=== PATIENT | female | born 1965 | race Asian ===

== ENCOUNTER 2016-10-23 17:09 | Inpatient (IN) | payer MEDICAID ==
[~2016-10-23] VITALS: Ht 157.5 cm; Wt 58.3 kg
--- NOTE | 2016-10-23 17:29 | NUR ---
PT BIBA FROM HOME. PT IS PLACED ON 5150 HOLD FOR REPORTEDLY ATTEMPTING TO HURT SELF WITH A WINE BOTTLE AND HIT HER HEAD ON THE GROUND AT HOME. PT IS AMHARIC MANDARIN SPEAKING ONLY. PT ARRIVED TO ED FULLY AWAKE AND ALERT, HAS SLURRED SPEECH, AND EXCLAIMS "I HAD TWO AND A HALF GLASSES OF WINE AND NOW I'M DRUNK!" PT DENIES THOUGHTS OF HURTING SELF OR OTHERS. WHEN QUESTIONED PT IF SHE HURT HERSELF WITH WINE BOTTLE SHE REPLIED "I JUST ACCIDENTALLY HIT MY HEAD WITH THE WINE BOTTLE." NO SIGNS OF RESP DISTRESS
[2016-10-23 18:06] LABS: BASOPHIL % 0.7 % (0-2); PLATELET COUNT 231 x10^3mcL (130-400); RED CELL DISTRIBUTION WIDTH 13.6 % (11.5-14.5)
[2016-10-23 18:14] LABS: CALCIUM 9.1 mg/dL (8.5-10.1); CARBON DIOXIDE 26.6 mmol/L (21-32); CHLORIDE SERUM 103 mmol/L (98-107); CREATININE SERUM 1.1 mg/dL (0.6-1.0); GFR1 56 mL/min; GLUCOSE SERUM 88 mg/dL (74-106); POTASSIUM SERUM 3.5 mmol/L (3.5-5.1); SODIUM SERUM 140 mmol/L (136-145)
[2016-10-23 18:22] LABS: ALBUMIN 4.1 g/dL (3.4-5.0); ALKALINE PHOSPHATASE 65 U/L (46-116); ALT/SGPT 28 U/L (14-59); AST/SGOT 22 U/L (15-37); BILIRUBIN TOTAL 0.3 mg/dL (0.20-1.00); TOTAL PROTEIN, SERUM 7.9 g/dL (6.4-8.2)
--- NOTE | 2016-10-23 18:33 | NUR ---
PT AMBULATED TO AND FROM THE RESTROOM WITH STEADY GAIT TO PROVIDE A URINE SPECIMEN
[2016-10-23 19:16] LABS: AMPHETAMINE QUAL UR NONE DETECTED (NEG <=1000)
--- NOTE | 2016-10-23 19:43 | NUR ---
PT SLEEPING, EASILY AROUSABLE TO VERBAL STIMULI. RESP E/U. NO ACUTE DISTRESS NOTED. SPOUSE AT BEDSIDE. IN FULL VIEW OF NURSES STATION. CALL LIGHT WITHIN REACH.
--- NOTE | 2016-10-23 21:20 | NUR ---
PT REQ TO GO OUTSIDE TO SMOKE. EXPLAINED TO PT THAT WE CANNOT LET HER GO OUTSIDE TO SMOKE. PT VERBALIZES UNDERSTANDING.
--- NOTE | 2016-10-23 23:56 | NUR ---
PT GIVEN A SANDWICH.
--- NOTE | 2016-10-24 00:15 | NUR ---
PT REQUESTS TO GO OUTSIDE TO SMOKE. PT EDUCATED AGAIN THAT SHE CANNOT LEAVE THE UNIT TO SMOKE, REGARDLESS OF 5150 HOLD OR NOT, PTs ARE NOT PERMITTED TO LEAVE THE UNIT OUTSIDE OF TREATMENT PURPOSES. PT WAS OFFERED NICOTIN PATCH. PT STATES NICOTINE PATCH DOES NOT WORK FOR HER. EXPLAINED TO PT THAT THE NICOTINE PATCH IS ALL WE CAN OFFER HER, PT GAVE UNDERSTANDING AND REQUESTED NICOTINE PATCH. MADE AWARE.
--- NOTE | 2016-10-24 01:28 | NUR ---
PT SLEEPING, PT IN NO ACUTE DISTRESS.
--- NOTE | 2016-10-24 02:47 | NUR ---
PT SLEEPING, FAMILY IS AT BEDSIDE.
--- NOTE | 2016-10-24 03:46 | NUR ---
PT SLEEPING, FAMILY IS AT BEDSIDE
--- NOTE | 2016-10-24 05:09 | NUR ---
PT SLEEPING, RESP EVEN AND UNLABORED, ON DRAFTER LANDSCAPE, FAMILY AT THE BEDSIDE. PT VSS. IN FULL VIEW FROM NURSES STATION.
--- NOTE | 2016-10-24 07:04 | NUR ---
PT SLEEPING, BREATHING EVEN AND UNLABORED. FAMILY IS AT BEDSIDE. CURTAINS REMAIN OPEN WITH FULL VIEW.
--- NOTE | 2016-10-24 07:17 | NUR ---
GAVE REPORT TO EDEN SPARKS AT EXT [id number], TO ASSUME CARE POST TRANSFER
[2016-10-24 07:48] LABS: BASOPHIL % 0.8 % (0-2); PLATELET COUNT 219 x10^3mcL (130-400); RED CELL DISTRIBUTION WIDTH 13.3 % (11.5-14.5)
[2016-10-24 08:00] LABS: microscopic required? YES; urine erythrocyte TRACE (NEGATIVE)
--- NOTE | 2016-10-24 08:08 | NUR ---
PATIENT RECEIVED AT THIS TIME VIA ERNEY. PATIENT AWAKE, ALERT, ABLE TO AMBULATE TO BED FROM [facility] IN [facility] INDEPENDENTLY, SON AT BEDSIDE, ALL SAFETY MEASURES IN PLACE, WILL CONTINUE TO MONITOR.
[2016-10-24 08:17] LABS: CALCIUM 8.6 mg/dL (8.5-10.1); CARBON DIOXIDE 29.2 mmol/L (21-32); CHLORIDE SERUM 108 mmol/L (98-107); CREATININE SERUM 0.8 mg/dL (0.6-1.0); GFR1 > 60 mL/min; GLUCOSE SERUM 98 mg/dL (74-106); POTASSIUM SERUM 3.7 mmol/L (3.5-5.1); SODIUM SERUM 142 mmol/L (136-145)
[2016-10-24 09:40] VITALS: BP 102/58
--- NOTE | 2016-10-24 09:40 | NUR ---
PATIENT AWAKE, ALERT, NO SIGNS OF DISTRESS NOTED. SON FANTASMA AT BEDSIDE TO TRANSLATE. DENIES CHEST PAIN, NO DIZZINESS, TELE #34. SCD'S PLACED, EDUCATION ON USE PROVIDED. ON ROOM AIR, KPAD PLACED TO LOWER BACK, DENIES ANY PAIN AT THIS TIME. CALM AND COOPERATIVE WITH CARE AT THIS TIME (SEE PSYCH ASSESSMENT). ALL SAFETY MEASURES IN PLACE AND REVIEWED, NURSE AID AT BEDSIDE FOR SAFETY, WILL CONTINUE TO MONITOR.
--- NOTE | 2016-10-24 12:30 | NUR ---
PATIENT AWAKE, ALERT, FAMILY AT BEDSIDE, NO SIGNS OF DISTRESS NOTED. NURSE AID AT BEDSIDE FOR SAFETY, WILL CONTINUE TO MONITOR.
[2016-10-24 14:02] VITALS: BP 118/74
--- NOTE | 2016-10-24 15:30 | NUR ---
DR NUGENT IN TO ASSESS PATIENT AT THIS TIME. PATIENT AWAKE, ALERT, NO SIGNS OF DISTRESS NOTED, FAMILY AT BEDSIDE, NURSE AID AT BEDSIDE FOR SAFETY. ALL SAFETY MEASURES IN PLACE, WILL CONTINUE TO MONITOR.
--- NOTE | 2016-10-24 15:51 | NUR ---
IV STARTED AT 1545 ON LEFT HAND, TOLERATED WELL, LINE IS PATENT, SON IS AT BEDSIDE. NURSE AIDE AT BEDSIDE FOR SAFETY. WILL CONTINUE TO MONITOR
[2016-10-24 17:29] VITALS: BP 116/86
--- NOTE | 2016-10-24 18:17 | NUR ---
PATIENT AWAKE, ALERT, NO SIGNS OF DISTRESS NOTED, FAMILY AT BEDSIDE, NURSE AID AT BEDSIDE FOR SAFETY. WILL CONTINUE TO MONITOR.
--- NOTE | 2016-10-24 19:05 | NUR ---
BEDSIDE REPORT GIVEN TO NOC SHIFT NURSE AT THIS TIME. PATIENT AWAKE, ALERT, WANTS TO GO OUTSIDE TO SMOKE, PATIENT COMFORTED AND REMINDED SHE HAS THE NICOTINE PATCH ON. NURSE AID AT BEDSIDE FOR SAFETY, WILL ENDORSE CARE.
--- NOTE | 2016-10-24 19:14 | NUR ---
RECEIVED PATIENT SITTING IN BED AWAKE, ALERT AND ORIENTED WITH NO SIGN OF DISTRESS, CALM AND NO SIGN OF SUICIDAL IDEATION NOTED. TELE#34 NSR ON MONITOR. DIMINISHED BS SATTING AT 98% RA. K PAD TO LOWER BACK IN PLACE. IV HEPLOCK TO LH AND FLUSHED WITH SALINE. WILL CONTINUE TO MONITOR. CALL LIGHT WITHIN REACH. SITTER AT BEDSIDE.
--- NOTE | 2016-10-24 20:32 | NUR ---
PATIENT HAD EPISODE OF BODY AND EXTREMETIES TENSE UP WITH EYE NYSTAGMUS FOR ABOUT 2 MINUTES. MD AWARE AND ADVICED TO TRACT DOWN ALL EPISODE. WILL CONTINUE TO MONITOR.
--- NOTE | 2016-10-24 21:49 | NUR ---
EFRAIN REQUESTED SLEEPING PILLS, DR BUCK MADE AWARE AND ORDERED AMBIEN 5MG PO.
[2016-10-24 23:52] VITALS: BP 125/76
--- NOTE | 2016-10-25 00:13 | NUR ---
PATIENT STILL AWAKE AFTER SHE TOOK AMBIEN 5MG PER PATIENT IT DID NOT WORK AND REQUESTING A STRONGER ONE. MD TO MAKE AWARE.
--- NOTE | 2016-10-25 05:25 | NUR ---
SLEPT FAIRLY NO SIGNS OF SUICIDAL IDEATION NOTED. CHECKED AT INTERVALS FOR NEEDS AND SAFETY.
[2016-10-25 06:12] VITALS: BP 106/65
--- NOTE | 2016-10-25 07:40 | NUR ---
PATIENT RECEIVED A/O, ABLE TO MAKE NEEDS KNOWN. TELE [address], DENIES CP. LUNGS SOMEWHAT DIM BILAT BASE, NO RESP DISTRESS NOTED ON RA. DENIES PAIN/DISCOMFORT AT THIS TIME. KPAD NOTED TO LOWER BACK. SKIN INTACT. IV ACCESS TO , SITE WNL. CALL LIGHT WITHIN REACH. SITTER IN ROOM.
--- NOTE | 2016-10-25 08:25 | NUR ---
DUE MEDICATIONS GIVEN, PATIENT CALM AND COOPERATIVE, SMILING AND RESPONDING APPROPRIATELY.
--- NOTE | 2016-10-25 08:45 | NUR ---
DR VENTURA AND TEAM AT BEDSIDE, PATIENT STATES HAVING HAD TOO MUCH TO DRINK THE OTHER DAY AND WAS FEELING EMOTIONAL AND NOW EXPRESSING DESIRE AND WILLINGNESS TO GO HOME. PER DR VENTURA OKAY TO GET RE-EVALUATED BY DR SOSA TODAY TO SEE IF SAFE FOR PATIENT TO DISCHARGE HOME. PATIENT VERBALIZED UNDERSTANDING.
[2016-10-25 09:58] VITALS: BP 106/71
--- NOTE | 2016-10-25 10:35 | NUR ---
PATIENT C/O LOWER BACK PAIN. EXAMINING CHAIR ASSEMBLER PHONE USED AGENT #[id number], PATIENT STATES BEEN LAYING IN BED FOR PAST 2 DAYS AND FEELS LIKE THERES A PINCH ON HER NERVE. ASKING TO WALK OUTSIDE OR GO HOME ENMA. INFORMED THAT SHE CAN WALK IN HALLWAY ACCOMPANIED BY STAFF AND THAT SHE NEEDS TO BE RE-EVALUATED BY THE DOCTOR BEFORE SHE CAN BE POSSIBLY DISCHARGED. VERBALIZED UNDERSTANDING. NORCO OFFERED AND ACCEPTED. NORCO WAS GIVEN AND PATIENT AMBULATED X1 LAP IN HALLWAY ACCOMPANIED BY RN. PATIENT ALSO COMPLAINED OF NOT HAVING A BM FOR SEVERAL DAYS AND FEELING ABD DISCOMFORT/CONSTIPATION. DR TAVERAS MADE AWARE AND STATES WILL ORDER SOMETHING.
--- NOTE | 2016-10-25 13:00 | NUR ---
RAD TECHS AT BEDSIDE DOING XRAY KUB.
--- NOTE | 2016-10-25 15:57 | NUR ---
FAMILY/CHILDREN AT BEDSIDE. MADE AWARE OF PLAN OF CARE FOR PATIENT TO BE [facility]. VERBALIZED UNDERSTANDING. PATIENT STATES NO LONGER FEELING ABD PAIN.
[2016-10-25 17:40] VITALS: BP 106/71
[2016-10-25] MEDS ORDERED: SERTRALINE50 M1 PO (18:22)
[2016-10-25] MEDS ORDERED: KROGER NIC21 MG/24 H TD (18:22)
[2016-10-25] MEDS ORDERED: THERAGRAN-M1 TA4 PO (18:23)
[2016-10-25 18:29] VITALS: BP 118/85
--- NOTE | 2016-10-25 19:05 | NUR ---
DISCHARGE INSTRUCTIONS GIVEN, FAMILY AT BEDSIDE. VERBALIZED UNDERSTANDING. IV DC'D CATH INTACT. TELE AT TECH STATION. ALL QUESTIONS ANSWERED. LEAVING UNIT ACCOMPANIED BY ASSOCIATE APPLICATION DEVELOPER/
== END 2016-10-25 19:05 | disposition home or self-care (01) | DRG 751 ==
LOC: ED 17:09 → DU 22:24
PROVIDERS: Emergency Medicine; ADMIT Family Medicine
DX: F33.2 Major depressive disorder, recurrent severe without psychotic features (principal); G92 Toxic encephalopathy; R45.851 Suicidal ideations; T45.0X1A Poisoning by antiallergic and antiemetic drugs, accidental (unintentional), initial encounter; T51.0X1A Toxic effect of ethanol, accidental (unintentional), initial encounter; M54.5 Low back pain; G89.29 Other chronic pain; F34.1 Dysthymic disorder; F17.210 Nicotine dependence, cigarettes, uncomplicated; F10.129 Alcohol abuse with intoxication, unspecified; Y90.0 Blood alcohol level of less than 20 mg/100 ml; Z63.5 Disruption of family by separation and divorce; Y92.009 Unspecified place in unspecified non-institutional (private) residence as the place of occurrence of the external cause
CPT/HCPCS: G0480; Q0092